=== PATIENT | female | born 2000 | race Caucasian/White ===

== ENCOUNTER 2018-08-24 10:08 | Emergency (ER) | payer BC ==
[~2018-08-24] VITALS: Ht 167.6 cm; Wt 72.6 kg
--- OUTSIDE RECORDS SUMMARY | 2018-08-24 10:15 | XMS REPORT ---
Author Author AMMON MALAVE [facility] Address [address] [place] [address] Care Team Providers Care Manager Business Management Name Role Phone AMMON MALAVE Unavailable PROBLEMS Unknown Problems ALLERGIES No Known Allergies SOCIAL HISTORY Never Assessed PLAN OF CARE Activity Details Follow Up 6, 6 Months Reason: VITAL SIGNS Height 66.5 in 2016-12-25 Weight 178.0 lbs 2016-12-25 Temperature 98.4 degrees Fahrenheit 2016-12-25 Heart Rate 84 bpm 2016-12-25 Respiratory Rate 18 2016-12-25 BMI 28.30 kg/m2 2016-12-25 Blood pressure systolic 120 mmHg 2016-12-25 Blood pressure diastolic 82 mmHg 2016-12-25 MEDICATIONS Medication Instructions Dosage Frequency Start Date End Date Duration Status Ortho Tri-Cyclen (28) 0.18/0.215/0.25 MG-35 MCG Orally Once a day 1 tablet 24h December, 28 day(s) Active RESULTS Name Result Date Reference Range TEST, URINE (IN HOUSE) 2016-12-25 RESULTS negative Lot # [id number] Control + Exp date PROCEDURES Procedure Date Ordered Result Body Site URINE TEST December 25, 2016 IMMUNIZATIONS No Known Immunizations
--- OUTSIDE RECORDS SUMMARY | 2018-08-24 10:15 | XMS REPORT ---
Author Author KARSTEN CYNTHIA [facility] Address [address] [place] [address] Care Team Providers Care Electronics Detail Draftsperson Name Role Phone KARSTENCYNTHIA MATOS Unavailable PROBLEMS Unknown Problems ALLERGIES No Information ENCOUNTERS Encounter Location Date Diagnosis [place] [id number] [place] [phone] Jun, Encounter for counseling regarding contraception Z30.09 [place] [id number], [place] [address] Jun, Encounter for counseling regarding contraception Z30.09 [place] [id number], [place] [address] May, [facility] [address] [place] [id number] [place] [phone] December, Encounter for BCP ( control pills) initial prescription Z30.011 [place] [id number], [place] [address] December, Encounter for BCP ( control pills) initial prescription Z30.011 IMMUNIZATIONS No Known Immunizations SOCIAL HISTORY Never Assessed REASON FOR VISIT PLAN OF CARE VITAL SIGNS MEDICATIONS Medication Instructions Dosage Frequency Start Date End Date Duration Status Aranelle 0.5/1/0.5-35 MG-MCG Orally Once a day 1 tablet 24h Jun, 28 day(s) Active RESULTS No Results PROCEDURES No Known procedures INSTRUCTIONS MEDICATIONS ADMINISTERED No Known Medications
--- NOTE | 2018-08-24 11:39 | ED Lower Extremity ---
General Chief Complaint: Lower Extremity Stated Complaint: R ANKLE PAIN Nursing Triage Note: Pt ambulated to fast track one. Pt reports wearing heels and twisting R ankle last night while walking in the grass. Pt's R outer ankle is swollen. Pt reports coming today because pt needs a dr's note for work. Source: patient, other (significant other) Exam Limitations: no limitations History of Present Illness Date Seen by Provider: Aug 24, 2018 Time Seen by Provider: 11:27 Initial Comments 17 yo female patient presents to the emergency room with complaints of right ankle pain after rolling her ankle while walking to the grass last night and high heels. does c/o rt ankle swelling. Denies taking any tylenol or motrin at home for pain. Patient is able to ambulate on the right lower extremity. Onset: other (last night.) Severity: moderate Pain/Injury Location: right ankle Method of Injury: twisted Modifying Factors: Worse With Movement Allergies and Home Medications Allergies Coded Allergies: No Known Drug Allergies (Unverified , 08/24/18) Patient Home Medication List Home Medication List Reviewed: Yes Review of Systems Constitutional: no symptoms reported Respiratory: no symptoms reported Cardiovascular: no symptoms reported Musculoskeletal: see HPI; No back pain; joint pain (right ankle pain radiating into the foot and up to the knee), joint swelling (right ankle); No neck pain Skin: No change in color Psychiatric/Neurological: Denies Headache, Denies Numbness, Denies Paresthesia , Denies Tingling, Denies Weakness All Other Systems Reviewed Negative Unless Noted: Yes (Negative excepted noted.) Past Cienjid-Hkawvd-Ylhsxn Hx Past Med/Social Hx: Reviewed Nursing Past Med/Soc Hx Patient Social History Alcohol Use: Occasionally Uses Recreational Drug Use: No Smoking Status: Current Someday Smoker Type Used: Cigarettes 2nd Hand Smoke Exposure: Yes Recent Foreign Travel: No Contact w/Someone Who Travel: No Recent Infectious Disease Expo: No Recent Hopitalizations: No Ebola Symptoms: Denies Symptoms Listed Physical Abuse: No Sexual Abuse: No Seasonal Allergies Seasonal Allergies: No Past Medical History Surgeries: No Respiratory: No Cardiac: No Neurological: No Genitourinary: No Gastrointestinal: No Musculoskeletal: No Endocrine: No HEENT: No Cancer: No Psychosocial: Yes Depression Integumentary: No Blood Disorders: No Adverse Reaction/Blood Tranf: No Family Medical History Reviewed Nursing Family Hx No Pertinent Family Hx Physical Exam Vital Signs Vital Signs - First Documented 08/24/18 10:49 Temp 98.4 Pulse 88 Pulse Ox 80 O2 Delivery Room Air Capillary Refill : Height, Weight, BMI Height: 5'6.00" Weight: 160lbs. oz. 72.967402mt; 21.09 BMI Method:Stated General Appearance: WD/WN, no apparent distress Cardiovascular: normal peripheral pulses, regular rate, rhythm, no murmur Respiratory: lungs clear, normal breath sounds, no respiratory distress, no accessory muscle use Hips: bilateral hip non-tender, bilateral hip normal inspection, bilateral hip normal range of motion, bilateral hip no evidence of injury Legs: left leg non-tender; bilateral leg normal inspection, bilateral leg normal range of motion, bilateral leg no evidence of injury; right leg pain, right leg soft tissue tenderness (right lateral distal leg soft tissue and bony tenderness. right thigh negative.) Knees: bilateral knee non-tender, bilateral knee normal inspection, bilateral knee normal range of motion, bilateral knee no evidence of injury Ankles: left ankle non-tender, left ankle normal inspection, left ankle normal range of motion, left ankle no evidence of injury; right ankle bone tenderness ( lateral malleolus), right ankle limited range of motion, right ankle pain, right ankle soft tissue tenderness (bilateral malleoli tenderness), right ankle swelling (lateral malleolus swelling) Feet: left foot non-tender; bilateral foot normal inspection, bilateral foot normal range of motion, bilateral foot no evidence of injury; right foot bone tenderness (lateral right foot tenderness), right foot pain, right foot soft tissue tenderness (lateral foot) Neurologic/Tendon: normal sensation, normal motor functions, normal tendon functions, responds to pain, no evidence tendon injury Neurologic/Psychiatric: no motor/sensory deficits, alert, normal mood/affect, oriented x 3 Skin: normal color, warm/dry; No ecchymosis Progress/Results/Core Measures Results/Orders My Orders Orders - CHRISTY WHITE Tibia/Fibula, Right, 2 Views (08/24/18 11:38) Foot, Right, 3 View (08/24/18 11:38) Air Strup Ankle Brace (08/24/18 12:15) Vital Signs/I&O 08/24/18 10:49 Temp 98.4 Pulse 88 B/P (MAP) Pulse Ox 80 O2 Delivery Room Air Diagnostic Imaging Diagonstic Imaging: Xray Plain Films/CT/US/NM/MRI: other (right tib-fib) Comments TIBIA/FIBULA, RIGHT, 2 VIEWS PATIENT HISTORY: Injury to the right tibia/ fibula.. TECHNIQUE: 2 views of the right tibia/fibula COMPARISON: None FINDINGS : No acute fracture or dislocation is seen in the right tibia/fibula. Alignment appears normal. Joint spaces are generally preserved. IMPRESSION: No acute osseous abnormalities seen in the right tibia/fibula. Dictated on workstation # [id number] Reviewed: Reviewed by Me Diagonstic Imaging: Xray Plain Films/CT/US/NM/MRI: other (right foot) Comments FOOT, RIGHT, 3 VIEW Right foot at 1045. Indication: Injury with foot pain. 3 views were obtained. There are no prior studies available for comparison. There is no fracture, dislocation or acute bony abnormality evident. The Lisfranc joint appears intact. The soft tissues are unremarkable. Impression: There is no evidence for an acute bony abnormality. Dictated on workstation # [id number] Reviewed: Reviewed by Me (radiology report reviewed by me) Departure Communication (Admissions) Diagnostic findings discussed with the patient. 3 inch Usama wrap and stirrup brace placed on the right ankle. plan for dsch to home. Impression Primary Impression: Right ankle sprain Qualified Codes: S93.411A - Sprain of calcaneofibular ligament of right ankle , initial encounter Disposition: 01 HOME, SELF-CARE Condition: Improved Departure-Patient Inst. Decision time for Depature: 12:08 Referrals: NO,LOCAL PHYSICIAN (PCP) Primary Care Physician SUN ARMSTRONG DNP (Family) Primary Care Physician Patient Instructions: Ankle Sprain (DC) Add. Discharge Instructions: All discharge instructions reviewed with patient and/or family. Voiced understanding. Tylenol Extra Strength [id number]-[id number] as directed for pain. Ibuprofen 800 mg by mouth every 8 hours as needed for pain. Elevate the right lower extremity on pillows. Ice pack for 20 minute intervals as needed for pain. Crutches as needed for 7 days, then increase activity as tolerated. Follow-up with your family practitioner for recheck if no improvement in 7-10 days. Return to the emergency department for worsened symptoms or any other concerns. Scripts Crutch (Crutch) 1 Each Each PACKET MC PRN PRN for pain, #1 0 Refills Prov: CHRISTY WHITE 08/24/18 Work/School Note: Work Release Form Date Seen in the Emergency Department: Aug 24, 2018 Return to Work: Aug 25, 2018 Other Restrictions Listed Below: elevate the right ankle with ice for 2- 3 days. crutches as needed for 1 wk Restrictions: increase activity as tolerated. CHRISTY WHITE Aug 24, 2018 11:39
--- NOTE | 2018-08-24 11:58 | Diagnostic Imaging Report ---
PATIENT HISTORY: Injury to the right tibia/fibula.. TECHNIQUE: 2 views of the right tibia/fibula COMPARISON: None FINDINGS: No acute fracture or dislocation is seen in the right tibia/fibula. Alignment appears normal. Joint spaces are generally preserved. IMPRESSION: No acute osseous abnormalities seen in the right tibia/fibula. Dictated by: Dictated on workstation # [id number]
--- NOTE | 2018-08-24 11:58 | Diagnostic Imaging Report ---
Right foot at 1045. Indication: Injury with foot pain. 3 views were obtained. There are no prior studies available for comparison. There is no fracture, dislocation or acute bony abnormality evident. The Lisfranc joint appears intact. The soft tissues are unremarkable. Impression: There is no evidence for an acute bony abnormality. Dictated by: Dictated on workstation # [id number]
--- NOTE | 2018-08-24 12:07 | NUR ---
Pt reports ice has made ankle feel better at this time.
[2018-08-24] MEDS ORDERED: CRUT1EAC7 MC (12:17)
== END 2018-08-24 12:22 | disposition home or self-care (01) ==
LOC: EDUNIT# 10:08 → ER 10:11
DX: S93.411A Sprain of calcaneofibular ligament of right ankle, initial encounter (principal); F32.9 Major depressive disorder, single episode, unspecified; F17.210 Nicotine dependence, cigarettes, uncomplicated; X50.1XXA Overexertion from prolonged static or awkward postures, initial encounter; Y93.01 Activity, walking, marching and hiking
CPT/HCPCS: 73590; 73630

== ENCOUNTER 2019-07-23 02:33 | Inpatient (IN) | payer BC ==
[~2019-07-23] VITALS: Ht 167.7 cm; Wt 92.7 kg
[2019-07-23] VITALS (10 sets, daily range): BP systolic 107–138; BP diastolic 67–87
[~2019-07-23 02:33] MED LIST: CRUT1EAC7 MC
--- NOTE | 2019-07-23 02:40 | NUR ---
NOEMI COYNE admitted to room 405-1, with an admitting diagnosis of Acute Appendicitis, on 07/23/[address] Darden, accompanied to room ambulatory with staff and boyfriend. NOEMI COYNE introduced to surroundings, call light, bed controls, phone, TV, temperature control, lights, meal times, smoking policy, visitor policy, side rail policy, bathrooms and showers. Patient Rights given to patient in the handbook. NOEMI COYNE verbalizes understanding that [facility] is not responsible for the loss or damage to any personal effects or valuables that are kept in the patients possession during their hospitalization.
--- NOTE | 2019-07-23 02:45 | HISTORY AND PHYSICAL ---
DATE OF SERVICE: ADMITTING PHYSICIAN: Chloe Yates MD HISTORY OF PRESENT ILLNESS: The patient is a 18-year-old female who presented to [facility] in [place], [place] Emergency Department with a one day history of right lower abdominal quadrant pain. She states that the pain was initially a sharp, crampy pain; however, persisted and worsened over time. She also reports some nausea; however, no vomiting. She does not recall any fever or chills. She has not had these symptoms before in the past. She does not report any red blood per rectum or any mucusy stools. A CT scan was performed, which did show a dilated appendix consistent with an early acute appendicitis. PAST MEDICAL HISTORY: None. PAST SURGICAL HISTORY: None. ALLERGIES: No known drug allergies. MEDICATIONS: None. SOCIAL HISTORY: Negative smoke, negative alcohol. FAMILY HISTORY: Noncontributory. REVIEW OF SYSTEMS: Well-nourished female currently guarded secondary to the abdominal pain. She is not experiencing any shortness of breath or difficulty breathing. No chest pain, palpitations, diaphoresis. Intermittent episodes of nausea. No vomiting. No cough. No diarrhea, constipation, no red blood per rectum, no dark tarry stools. No fever, chills, no recent inadvertent weight loss. All other review of systems negative. PHYSICAL EXAMINATION: VITAL SIGNS: Stable, afebrile. CHEST: Clear. Good breath sounds bilaterally. HEART: Regular, no murmurs. EXTREMITIES: No lower extremity edema, negative Homans sign. HEENT: No scleral icterus. NECK: No cervical lymphadenopathy. ABDOMEN: Soft, nondistended. There is pain in the right lower abdominal quadrant at McBurney's point with voluntary guarding, no rebound. SKIN: Warm, dry. ASSESSMENT AND PLAN: A 18-year-old female with noncomplicated early acute appendicitis. We will admit her, IV hydrate, start antibiotics and proceed with bowel rest. We will then proceed with a diagnostic laparoscopy as well as laparoscopic appendectomy on this admission. Job ID: [id number] DocumentID: [id number] Dictated Date: 07/23/2019 01:17:04 Physician Coder Date: 07/23/2019 02:18:31 Dictated By: CHLOE YATES MD
[2019-07-23] MEDS ORDERED: morphine INJ 4 MG/ML 1 ML (VIAL/SYRINGE) IVP PRN (03:15)
[2019-07-23] MEDS ORDERED: HYDROcodone/APAP 7.5 MG/325 MG (LORTAB, LORCET PLUS) TABLET PO PRN (03:15)
[2019-07-23] MEDS ORDERED: metroNIDAZOLE 500MG/100ML IVPB 100 ML IV SCH ×2 (03:15→15:00)
[2019-07-23] MEDS ORDERED: CIPROFLOXACIN IV 400MG/200ML 200 ML IV SCH ×2 (03:15→15:00)
[2019-07-23] MEDS ORDERED: ONDANSETRON 4 MG/2 ML (SDV) Z0FRAN IVP PRN ×2 (03:15→12:45)
[2019-07-23] MEDS: LACTATED RINGERS 1,000 ML IV SCH ×2 (03:18→13:03)
[2019-07-23] MEDS ORDERED: BUP/EPI 0.5% 1:200,000 (MARCAINE) 10ML VIAL IJ ONE (09:40)
--- NOTE | 2019-07-23 09:47 | Progress Note-Pre Operative ---
Pre-Operative Progress Note H&P Reviewed The H&P was reviewed, patient examined and no changes noted. Date Seen by Provider: Jul 23, 2019 Time Seen by Provider: 09:45 Date H&P Reviewed: Jul 23, 2019 Time H&P Reviewed: 09:40 Pre-Operative Diagnosis: Acute Appendicitis NITESH GARCIA APRN Jul 23, 2019 09:47 POS
[2019-07-23] MEDS ORDERED: proPOfol 200 MG/20 ML (DIPRIVAN) VIAL IV ONE (09:51)
[2019-07-23] MEDS ORDERED: ONDANSETRON 4 MG/2 ML (SDV) Z0FRAN ONE (09:51)
[2019-07-23] MEDS ORDERED: SEVOFLURANE (ULTANE) 15 ML INHAL SOLN ONE ×3 (09:51→12:18)
[2019-07-23] MEDS ORDERED: ROCURONIUM 10 MG/ML 5 ML SYRINGE IV ONE (09:51)
[2019-07-23] MEDS ORDERED: DEXAMETHASONE 10 MG/ML (DECADRON) 1 ML VIAL ONE (09:51)
[2019-07-23] MEDS ORDERED: LIDOCAINE PF 2% 5 ML (XYLOCAINE) VIAL ONE (09:51)
[2019-07-23] MEDS ORDERED: fentaNYL INJECTION 100 MCG/2 ML AMP ONE ×2 (09:52→12:16)
[2019-07-23] MEDS ORDERED: MIDAZOLAM 2 MG/2 ML (VERSED) VIAL ONE (09:53)
[2019-07-23] MEDS ORDERED: HYDR-3816 PO (10:38)
--- NOTE | 2019-07-23 10:39 | Discharge Inst-Surgical ---
D/C Lap Instructions-KIDO Reconcile Patient Problems Problems Reviewed?: Yes New, Converted, or Re-Newed RX: RX on Chart Follow Up Appt in 2 weeks Activity as tolerated No driving for 24 hours No driving while on pain medications Incentive Spirometry use every 2 hours while awake Regular Diet Symptoms to Report: Fever over 101 degree F, Nausea/Vomiting Infection Signs and Symptoms to report: Increased redness, Foul odor of wound, Increased drainage Bathing instructions: May shower Operative Area Clean/Dry; Keep incision clean/dry If any problems/questions: Contact your physician or go to Emergency Room NITESH GARCIA APRN Jul 23, 2019 10:39 POS
--- NOTE | 2019-07-23 10:47 | NUR ---
Surgery nurse here to transport patient for procedure.
[2019-07-23] MEDS ORDERED: LACTATED RINGERS 1,000 ML IV PRN (11:01)
[2019-07-23] MEDS: LACTATED RINGERS 1,000 ML IV PRN ×2 (11:03→12:22)
[2019-07-23] MEDS ORDERED: ceFAZolin INJECTION 2,000 MG ONE (11:40)
[2019-07-23] MEDS ORDERED: morphine INJ 10 MG/ML 1ML (SYR OR VIAL) ONE (11:46)
--- NOTE | 2019-07-23 12:14 | Progress Note-Post Operative ---
Post-Operative Progess Note Surgeon (s)/Tariff Expert (s) Surgeon CHLOE YATES MD Tariff Expert: jennifer loo CRYSTAL SLICER Pre-Operative Diagnosis Acute Appendicitis Post-Operative Diagnosis same Procedure & Operative Findings Date of Procedure 07/23/19 Procedure Performed/Findings laparoscopic appendectomy Anesthesia Type get Estimated Blood Loss Estimated blood loss (mL): minimal Specimens/Packing Specimens Removed appendix CHLOE YATES MD Jul 23, 2019 12:14 POS
[2019-07-23] MEDS ORDERED: GLYCOPYRROLATE 0.2 MG/ML (ROBINUL) 2 ML VIAL ONE (12:17)
[2019-07-23] MEDS ORDERED: NEOSTIGMINE 3 MG/3 ML VIAL ONE (12:17)
[2019-07-23] MEDS ORDERED: HYDROmorphone 2 MG/ML VIAL (DILAUDID) IV ONE (12:45)
[2019-07-23] MEDS ORDERED: PROMETHAZINE INJ 25 MG/ML (PHENERGAN) AMP IVP ONE (12:45)
[2019-07-23] MEDS ORDERED: morphine INJ 10 MG/ML 1ML (SYR OR VIAL) IVP ONE (12:45)
[2019-07-23] MEDS ORDERED: MEPERIDINE (DEMEROL) INJ 50 MG/ML IVP ONE (12:45)
--- NOTE | 2019-07-23 13:11 | Anesthesia-General Post-Op ---
General Patient Condition Mental Status/LOC: Same as Preop Cardiovascular: Satisfactory Nausea/Vomiting: Absent Respiratory: Satisfactory Pain: Controlled Complications: Absent Post Op Complications Complications None Follow Up Care/Instructions Patient Instructions None needed. Anesthesia/Patient Condition Patient Condition Patient is doing well, no complaints, stable vital signs, no apparent adverse anesthesia problems. No complications reported per nursing. CARRIE JACQUES CRNA Jul 23, 2019 13:11 POS
--- NOTE | 2019-07-23 13:30 | NUR ---
Patient returned from surgery, report received from LORETA Modi. This RN will assume care at this time.
--- NOTE | 2019-07-23 15:31 | OPERATIVE REPORT ---
DATE OF SERVICE: 07/23/2019 PREOPERATIVE DIAGNOSIS: Acute appendicitis. POSTOPERATIVE DIAGNOSIS: Acute appendicitis. PROCEDURE: Laparoscopic appendectomy. SURGEON: Chloe Yates MD. CLIENT SERVICES SPECIALIST: Jordan Crocker APRN. ANESTHESIA: General endotracheal. ESTIMATED BLOOD LOSS: Minimal. FINDINGS: Inflamed appendix, which was dilated. There was no perforation identified. The uterus and ovaries appeared normal. DISPOSITION: The patient tolerated the procedure well. INDICATIONS: The patient is a 18-year-old female, who presented with a sudden onset of pain in the right lower abdominal quadrant starting earlier that day. This was followed by nausea and vomiting. She does not report any fever or chills. She was en route back home from [place], [place] and they stopped in [place], [place] and was evaluated with laboratory work examination as well as a CT scan, which was consistent with an early acute appendicitis. She requested to be transferred to this institution. DESCRIPTION OF PROCEDURE: The patient was brought to the operating room, laid supine on the table. After adequate IV pain and sedative medications and general endotracheal intubation, the abdomen was prepped and draped in standard surgical fashion. A 0.5% Marcaine with epinephrine was used to anesthetize the overlying skin in the left upper abdominal quadrant and a transverse skin incision made using a 15 blade. An 0 silk suture was applied to the medial aspect of incision for traction and a Veress needle inserted with a low opening pressure of 0 mmHg. The abdomen was then insufflated to 15 mmHg pressure. The Veress needle removed and a 5 mm XL trocar placed followed by a 5 mm 45-degree angle laparoscope visualizing the peritoneal cavity. A 4-quadrant abdominal exploration was performed. Uterus and ovaries appeared normal. There was no fluid within the pelvis. A small bowel, omentum, colon appeared normal. There was a dilated appendix with increased turgor pressure consistent with an acute appendicitis and no perforation. Under direct visualization, we then proceeded to place a supraumbilical 10 mm port after the skin and peritoneal lining were anesthetized using 0.5% Marcaine with epinephrine and a transverse skin incision made using a 15 blade. In a similar manner, a suprapubic 5 mm port was placed. The patient was then placed in Trendelenburg position as well as plane right side up, left side down. The appendix was then retracted towards the anterior abdominal wall and a window was then created between the mesoappendix and the base of the appendix at the cecum. The appendix was then stapled and transected at the cecal base using a KAYLYN 45 mm stapler with 2.5 mm thickness load. The mesoappendix was then stapled and transected with a 2.5 mm thickness reload with visualization of good hemostasis. The appendix was removed through the 10 mm port site using an EndoCatch bag. The 10 mm port site, fascia and peritoneum were then closed under direct visualization using a Ab-Tomy device and 0 Vicryl suture. The abdomen was desufflated and remaining ports removed. All skin incisions were closed using 4-0 Monocryl running subcuticular sutures. Wounds were then cleaned and covered with Dermabond. The patient tolerated the procedure well. We will start IV normal pain medication as well as a clear liquid diet. Once she is tolerating clears, has good pain control with oral pain medications, ambulating well, we will discharge her home. She will be instructed to do no heavy lifting or exertion for the next two weeks. Job ID: [id number] DocumentID: [id number] Dictated Date: 07/23/2019 12:52:37 Painter Foreman Date: 07/23/2019 15:30:28 Dictated By: CHLOE YATES MD
--- NOTE | 2019-07-25 07:57 | Anesthesia-General Post-Op ---
General Patient Condition Mental Status/LOC: Same as Preop Cardiovascular: Satisfactory Nausea/Vomiting: Absent Respiratory: Satisfactory Pain: Controlled Complications: Absent Post Op Complications Complications None Follow Up Care/Instructions Patient Instructions None needed. Anesthesia/Patient Condition Patient Condition Patient is doing well, no complaints, stable vital signs, no apparent adverse anesthesia problems. No complications reported per nursing. VALERI VASQUEZ CRNA Jul 25, 2019 07:57 POS
== END 2019-07-23 18:24 | disposition home or self-care (01) | DRG 343 ==
LOC: 4TH 02:33
PROVIDERS: ADMIT Surgery; ATTEND Surgery
PROC: 0DTJ4ZZ Resection of Appendix, Percutaneous Endoscopic Approach (ICD-10-PCS; principal; 2019-07-23 11:17)
DX: K35.80 Unspecified acute appendicitis (principal)
CPT/HCPCS: 87081